=== PATIENT | female | born 1960 | race Caucasian/White ===

== ENCOUNTER 2017-06-21 06:31 | Day surgery (SDC) | payer OTHER ==
[~2017-06-21 06:31] MED LIST: ATORVASTATIN CA20 MG PO; BETIMOL5 M1 OP; CONZIP300 MG PO; FENOFIBRATE160 MG PO; OSTERA TABLET1 EACH PO; PROTONIX20 MG PO; RESTORIL15 MG PO; YUVAFEM10 MCG VG
== END 2017-06-21 21:35 | disposition home or self-care (01) ==
LOC: CIR.AMB 06:31 → ADM 05-18 08:25
DX: D05.12 Intraductal carcinoma in situ of left breast (principal)